=== PATIENT | male | born 1990 | race Caucasian/White ===

== ENCOUNTER → 2017-08-06 | Day surgery (SDC) | payer BC ==
[~2017-08-06] MED LIST: Dexamethasone 4 MG/ML 5 ML MDV ONE; EPINEPHrine 1 MG/ML 30 ML MDV ONE; Lactated Ringers 0 ML ONE; Lactated Ringers 1,000 ML IV SCH; Lidocaine 1% 0 ML ONE; Lidocaine 1%/Sod Bicarbonate in NS 8.4% 1 ML Syringe IDERM PRN; Midazolam 1 MG/ML 2 ML SDV ONE; Ondansetron 4 MG/2 ML SDV ONE; Pregabalin 25 MG Cap PO ONE; Propofol 200 MG/20 ML SDV ONE; Rocuronium 50 MG/5 ML Vial ONE; Sodium Chloride 0.9% 10 ML Syringe FLUSH PRN; ceFAZolin 1 GM Vial ONE; fentaNYL 250 MCG/5 ML SDV ONE; oxyCODONE ER 10 MG TAB.ER PO SCH
== END | disposition home or self-care (01) ==
LOC: JD.SDS 06:34
PROVIDERS: ATTEND Orthopaedic Surgery
DX: M25.851 Other specified joint disorders, right hip (principal); Z53.8 Procedure and treatment not carried out for other reasons
CPT/HCPCS: 87641; A9270-GY; J0690; J1100; J2250; J2405; J2704; J3010; J7120

== ENCOUNTER 2017-08-09 06:37 | Day surgery (SDC) | payer BC ==
[~2017-08-09 06:37] MED LIST changes: +Acetaminophen 1,000 MG/100 ML Infusion Bottle IV ONE; -Dexamethasone 4 MG/ML 5 ML MDV ONE; -EPINEPHrine 1 MG/ML 30 ML MDV ONE; -Lactated Ringers 0 ML ONE; -Lidocaine 1% 0 ML ONE; -Midazolam 1 MG/ML 2 ML SDV ONE; -Ondansetron 4 MG/2 ML SDV ONE; -Pregabalin 25 MG Cap PO ONE; +Pregabalin 25 MG Cap PO SCH; -Propofol 200 MG/20 ML SDV ONE; -Rocuronium 50 MG/5 ML Vial ONE; -ceFAZolin 1 GM Vial ONE; -fentaNYL 250 MCG/5 ML SDV ONE
[2017-08-09] MEDS ORDERED: Bupivacaine 0.25% 30 ML SDV ONE (07:13)
[2017-08-09] MEDS ORDERED: EPINEPHrine 1 MG/ML 30 ML MDV ONE (07:26)
[2017-08-09] MEDS ORDERED: Midazolam 1 MG/ML 2 ML SDV ONE (07:46)
[2017-08-09] MEDS ORDERED: fentaNYL 250 MCG/5 ML SDV ONE (07:46)
[2017-08-09] MEDS ORDERED: Propofol 200 MG/20 ML SDV ONE (07:46)
[2017-08-09] MEDS ORDERED: Rocuronium 50 MG/5 ML Vial ONE ×2 (07:48→09:00)
[2017-08-09] MEDS ORDERED: Dexamethasone 4 MG/ML 5 ML MDV ONE (07:48)
[2017-08-09] MEDS ORDERED: Lidocaine 1% 4 ML ONE (07:48)
[2017-08-09] MEDS ORDERED: Ondansetron 4 MG/2 ML SDV ONE (07:48)
[2017-08-09] MEDS ORDERED: ceFAZolin 1 GM Vial ONE (07:49)
[2017-08-09] MEDS ORDERED: Lactated Ringers 1,000 ML ONE (10:38)
[2017-08-09] MEDS ORDERED: Bupivacaine 0.25% 10 ML SDV ONE (11:25)
[2017-08-09] MEDS ORDERED: Ketorolac 30 MG/ML SDV ONE (11:30)
--- NOTE | 2017-08-09 11:36 | CR ---
Right hip: Multiple fluoroscopic spot views were obtained of the right hip. Study obtained utilizing C-arm device. Study shows probe and arthroscope present for right hip arthroscopy. Fluoroscopy time is given as 140.4 seconds. Impression: 1. Operative study as noted above. Diagnostic code #2
[2017-08-09] MEDS ORDERED: Glycopyrrolate 0.2 MG/ML SDV ONE (11:39)
[2017-08-09] MEDS ORDERED: Neostigmine Methylsulfate 10 MG/10 ML MDV ONE (11:39)
[2017-08-09] MEDS ORDERED: fentaNYL 100 MCG/2 ML SDV IVPUSH PRN (11:50)
[2017-08-09] MEDS ORDERED: HYDROmorphone 0.5 MG/0.5 ML Syringe IVPUSH ONE (11:50)
[2017-08-09] MEDS ORDERED: Ondansetron 4 MG/2 ML SDV IVPUSH PRN (11:50)
[2017-08-09] MEDS ORDERED: diphenhydrAMINE 50 MG/ML SDV IVPUSH PRN (11:50)
[2017-08-09] MEDS ORDERED: Meperidine PF 50 MG/ML Syringe IVPUSH PRN (11:50)
--- NOTE | 2017-08-09 11:52 | PCM.POSTAN ---
POST ANESTHESIA ASSESSMENT - MENTAL STATUS Mental Status: Alert, Oriented - VITAL SIGNS Pulse Rate: 75 SaO2: 99 Resp Rate: 12 Blood Pressure: 121/60 Temperature: 36.9 C - RESPIRATORY Respiratory Status: Respiratory Rate WNL, Airway Patent, O2 Saturation Stable, Supplemental Oxygen - CARDIOVASCULAR CV Status: Pulse Rate WNL, Blood Pressure Stable - GASTROINTESTINAL GI Status: No Symptoms - PAIN Pain Score: 0 - POST OP HYDRATION Hydration Status: Adequate & Stable
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
[2017-08-09] MEDS ORDERED: Acetaminophen/HYDROcodone 325-5 MG Tab PO SCH (13:07)
--- NOTE | 2017-08-09 15:04 | PCM48HPAN ---
Post Anesthesia Note - EVALUATION WITHIN 48HRS OF ANESTHETIC Vital Signs in Normal Range: Yes Patient Participated in Evaluation: Yes Respiratory Function Stable: Yes Airway Patent: Yes Cardiovascular Function Stable: Yes Hydration Status Stable: Yes Pain Control Satisfactory: Yes Nausea and Vomiting Control Satisfactory: Yes Mental Status Recovered: Yes
--- NOTE | 2017-08-13 17:35 | PCM.OPNOTE ---
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
--- NOTE | 2017-08-16 09:23 | OR ---
DATE OF OPERATION: 08/06/2017 SURGEON: Denzel Estrada MD OPERATION PERFORMED: Right hip video arthroscopy with acetabular labral repair and femoroplasty. PREOPERATIVE DIAGNOSIS: Right hip femoral acetabular impingement with labral tear. POSTOPERATIVE DIAGNOSIS: Right hip femoral acetabular impingement with labral tear. ANESTHESIA: General endotracheal intubation with local. ANESTHESIA PROVIDER: Luciano Hernadez. RN TRAUMA: Saumya Rodriguez LPN ESTIMATED BLOOD LOSS: 10 mL. COMPLICATIONS: None. CONDITION: Stable DESCRIPTION OF PROCEDURE: The patient was identified in the preop holding area. Proper site was marked and identified by the surgeon. The patient was taken back to the operative theater where, after adequate anesthesia, the patient's left lower extremity was placed in a traction boot, and minimal gross traction was applied. Right lower extremity was then placed in a traction boot, and gross traction was then applied. At this time, the right hip was then sterilely prepped and draped in the usual sterile fashion. OR time-out was performed. The patient received 2 g of IV Ancef. The patient's patella was straight up toward the ceiling. At this time, under direct C-arm fluoroscopy, 4 turns of traction were applied. The patient's hip was not distracting. So, at this time, a spinal needle was used for placement of a lateral portal, and once it was intra-articular, the joint decompressed, and there was noted to be enough traction at that time. One turn of traction was then released. At this time, an incision was made, and a lateral portal was created under direct visualization. Anterolateral portal was then created with the use of a spinal needle. Scope trocar was then inserted, and a working portal was then placed. At this time, the patient was noted to have significant fraying of his anterior, all the way to the anterolateral labrum. A traction stitch was then applied to the superior labral region, and a T capsulotomy was then performed from medial to lateral to connect the 2 portals by doing a capsulotomy. Once this was completed, debridement was done above the acetabular rim, and cautery was then used to bring the labrum back until the rim of the acetabulum was visualized all the way from anterior, all the way to the anterolateral portion under direct C-arm fluoroscopy. With the use of a 5.5 full-radius razia rubi, I was able to perform an acetabuloplasty all the way from the anterior lip all the way to the anterolateral lip under direct C-arm fluoroscopy showing good resection. There was noted to be a minor amount of bone spurring noted, especially on the very far anterior labrum, with loose pieces of bone noted that were resected out. Once there was found to have good contour of the anterior labrum with resection of the anterior and anterolateral rims, it was decided at this time we would start with the curved knotless labral anchor. At this time, starting most anterior and medial, a curved knotless Ben labral anchor was then drilled for. A suture was then passed, and then the anchor was placed in the anterior rim of the acetabulum under direct visualization into the joint, making sure there was no penetration of the joint. The suture limbs were then tightened to make sure there was good tension and roll back in the labrum. There was found to have adequate repair of the labrum at this time. In a similar fashion, 3 more anchors were then done. Again, we started most anteromedial and then worked all the way to the anterolateral portion. There was noted to be good gnosticism of the bumper effect all the way around. There was not fraying of the labrum noted, which was then resected and cleaned up throughout to have a good nice brim noted throughout with a good watertight labral repair. The patient did have some bubbling of the chondral surface, but no full-thickness defects were noted of the femoral head or the acetabulum at this time. At this time, once this was completed, traction was then taken off, and a Dahla portal was created. The traction stitches were then applied on either the medial and lateral side of the femoral neck and samurai blade as well as cautery was used to complete the T capsulotomy. Under direct visualization and C-arm fluoroscopy, the significant CAM lesion both of the anterior and anterolateral femoral neck and femoral head was identified. Using the razia rubi, we again performed a large femoroplasty, resecting roughly 8 mm of bone both from the head and neck junction and in the anterolateral and lateral femoral necks. At this time, it was noted under direct visualization and C-arm fluoroscopy to have complete resection of the CAM lesion with good contour of the femoral head and neck. At this time, a stitch was then placed in the T capsulotomy portion down the neck. Two stitches were then placed and then tied for repair of that portion of the capsulotomy. The other portion was noted to have bigger spacing, and no repair could be done for that, but the patient did have a deep, well-seated socket. So, the risk of dislocation is minimal. At this time, excess saline was drained from the hip joint. A 3-0 nylon simple suture was used for closure of the skin. Marcaine was then injected around the ASIS as well as the portal incisions, and the patient had a sterile soft dressing applied. TRISH /[id number] EMA
== END 2017-08-09 14:25 | disposition home or self-care (01) ==
LOC: JD.SDS 06:37
PROVIDERS: ATTEND Orthopaedic Surgery
DX: M25.851 Other specified joint disorders, right hip (principal); S73.191A Other sprain of right hip, initial encounter; J45.20 Mild intermittent asthma, uncomplicated; Z87.891 Personal history of nicotine dependence; Z79.899 Other long term (current) drug therapy; X58.XXXA Exposure to other specified factors, initial encounter
CPT/HCPCS: 29914; 29916; 76000; A9270; C1776; J0171; J0690; J1100; J1170; J1885; J2250; J2405; J2710; J3010; J3490; J7120; 01202; J2704

== ENCOUNTER 2021-07-24 15:36 | Emergency (ER) | payer OTHER | END 2021-07-24 16:35 | disposition home or self-care (01) | LOC: JD.ED 15:36 | DX: S63.104A Unspecified dislocation of right thumb, initial encounter (principal); K21.9 Gastro-esophageal reflux disease without esophagitis; Z79.82 Long term (current) use of aspirin; W18.39XA Other fall on same level, initial encounter | CPT/HCPCS: 26725; 26770; 73140-26-F5; 73140-F5; 99283 ==

== ENCOUNTER 2021-11-30 23:03 | Emergency (ER) | payer OTHER, MEDICAID | END 2021-12-01 00:27 | disposition home or self-care (01) | LOC: JD.ED 23:03 | DX: S63.501A Unspecified sprain of right wrist, initial encounter (principal); F17.210 Nicotine dependence, cigarettes, uncomplicated; Z79.899 Other long term (current) drug therapy; Z79.82 Long term (current) use of aspirin; X50.0XXA Overexertion from strenuous movement or load, initial encounter | CPT/HCPCS: 73110-26-RT; 73110-RT; 99283 ==

== ENCOUNTER 2023-01-29 12:20 | Emergency (ER) | payer MEDICAID, OTHER ==
[2023-01-29] MEDS ORDERED: Sodium Chloride 0.9% 10 ML Syringe FLUSH PRN (12:40)
[2023-01-29 13:06] LABS: BASOPHILS PERCENT AUTO 0.7 % (0.0-1.0); EOSINOPHILS ABSOLUTE AUTO 0.3 K/mm3 (0.0-0.4); EOSINOPHILS PERCENT AUTO 4.3 % (0.0-6.0); HEMATOCRIT 46.1 % (42.0-52.0); HEMOGLOBIN 16.2 gm/dl (14.0-18.0); LYMPHOCYTES ABSOLUTE AUTO 2.3 K/mm3 (1.0-4.8); LYMPHOCYTES PERCENT AUTO 37.8 % (24.0-44.0); MEAN CORPUSCULAR HEMOGLOBIN 29.5 pg (28.0-32.0); MEAN CORPUSCULAR HGB CONC 35.1 g/dl (32.0-36.0); MEAN PLATELET VOLUME 9.4 fl (9.4-12.4); MONOCYTES ABSOLUTE AUTO 0.4 K/mm3 (0.0-0.8); MONOCYTES PERCENT AUTO 7.1 % (0.0-8.0); NEUTROPHILS PERCENT AUTO 50.1 % (41.0-71.0); PLATELET COUNT,PLT 229 K/mm3 (150-400); RED BLOOD CELL COUNT 5.49 M/mm3 (4.52-5.90); WHITE BLOOD CELL COUNT,WBC 6.06 K/mm3 (3.9-11.3)
[2023-01-29 13:48] LABS: INR 1.09; PROTHROMBIN TIME 11.6 SECONDS (9.7-12.0)
[2023-01-29 13:49] LABS: A/G RATIO 1.5 (1-2); ALANINE AMINOTRANSFERASE,ALT 38 U/L (16-63); ALBUMIN 4.5 g/dl (3.4-5.0); ALKALINE PHOSPHATASE 52 U/L (46-116); ANION GAP 12.6 (5-15); ASPARTATE AMNIOTRANSFERASE,AST 25 U/L (15-37); BILIRUBIN TOTAL 1.6 mg/dL (0.2-1.0); BLOOD UREA NITROGEN,BUN 14 mg/dL (7-18); BUN/CREATININE RATIO 12.7 (14-18); CALCIUM 8.9 mg/dL (8.5-10.1); CARBON DIOXIDE,CO2 28 mEq/L (21-32); CHLORIDE,CL 101 mEq/L (98-107); CREATININE 1.1 mg/dL (0.7-1.3); EST CRCL DRUG DOSING (CG) 100.47 mL/min; ESTIMATED GFR 92 mL/min (>60); GLUCOSE RANDOM 90 mg/dL (70-99); MAGNESIUM 2.1 mg/dL (1.8-2.4); POTASSIUM,K 3.6 mEq/L (3.5-5.1); PROTEIN TOTAL,TP 7.5 g/dl (6.4-8.2); SODIUM,NA 138 mEq/L (136-145)
[2023-01-29 13:57] LABS: TROPONIN I HIGH SENSITIVITY < 4 pg/mL (<=76)
[2023-01-29 13:59] LABS: D-DIMER QUANTITATIVE < 0.19 mg/L (0.19-0.50)
== END 2023-01-29 15:15 | disposition home or self-care (01) ==
LOC: JD.ED 12:20
DX: R07.9 Chest pain, unspecified (principal); J45.909 Unspecified asthma, uncomplicated
CPT/HCPCS: 36415; 80053; 83735; 84484; 85025; 85379; 85610; 93005; 93010; 99284; 99285

== ENCOUNTER 2024-06-10 21:10 | Emergency (ER) | payer OTHER ==
[2024-06-10] MEDS: Sodium Chloride 0.9% 1,000 ML IV ONE (21:44)
[2024-06-10] MEDS: Metoclopramide 10 MG/2 ML SDV IVPUSH ONE (21:46)
[2024-06-10] MEDS: diphenhydrAMINE 50 MG/ML SDV IVPUSH ONE (21:50)
[2024-06-10] MEDS: Ketorolac 30 MG/ML SDV IVPUSH ONE (21:50)
== END 2024-06-10 22:51 | disposition home or self-care (01) ==
LOC: JD.ED 21:10
DX: G43.909 Migraine, unspecified, not intractable, without status migrainosus (principal); J45.909 Unspecified asthma, uncomplicated; Z90.89 Acquired absence of other organs
CPT/HCPCS: 96361; 96374; 96375; 99283; J1200; J1885; J2765; J7030

== ENCOUNTER 2024-11-12 20:04 | Emergency (ER) | payer OTHER ==
[2024-11-12] MEDS ORDERED: Sodium Chloride 0.9% 10 ML Syringe FLUSH PRN (20:33)
[2024-11-12 20:41] LABS: BASOPHILS ABSOLUTE AUTO 0.1 K/mm3 (0.0-0.2); BASOPHILS PERCENT AUTO 0.8 % (0.0-1.0); EOSINOPHILS ABSOLUTE AUTO 0.2 K/mm3 (0.0-0.4); EOSINOPHILS PERCENT AUTO 3.6 % (0.0-6.0); IMMATURE GRAN ABSOLUTE AUTO 0.01 K/mm3 (0.00-0.05); IMMATURE GRAN PERCENT AUTO 0.2 % (0.0-0.4); LYMPHOCYTES ABSOLUTE AUTO 2.6 K/mm3 (1.0-4.8); LYMPHOCYTES PERCENT AUTO 39.8 % (24.0-44.0); MEAN PLATELET VOLUME 10.3 fl (9.4-12.4); MONOCYTES ABSOLUTE AUTO 0.6 K/mm3 (0.0-0.8); MONOCYTES PERCENT AUTO 8.7 % (0.0-8.0); NEUTROPHILS ABSOLUTE AUTO 3.1 K/mm3 (1.8-7.7); NEUTROPHILS PERCENT AUTO 46.9 % (41.0-71.0); NRBC ABSOLUTE 0.00 (0.00-0.02); NRBC PERCENT 0.0 % (0.0-0.2); PLATELET COUNT,PLT 221 K/mm3 (150-400); RED BLOOD CELL COUNT 4.71 M/mm3 (4.52-5.90); WHITE BLOOD CELL COUNT,WBC 6.63 K/mm3 (3.9-11.3)
[2024-11-12] MEDS: Ketorolac 30 MG/ML SDV IVPUSH ONE (20:57)
[2024-11-12 21:13] LABS: A/G RATIO 1.5 (1-2); ALANINE AMINOTRANSFERASE,ALT 33.0 U/L (16-63); ASPARTATE AMNIOTRANSFERASE,AST 21.0 U/L (15-37); BILIRUBIN TOTAL 1.1 mg/dL (0.2-1.0); BLOOD UREA NITROGEN,BUN 27.0 mg/dL (7-18); CARBON DIOXIDE,CO2 29.0 mEq/L (21-32); CHLORIDE,CL 101.0 mEq/L (98-107); CREATININE 1.4 mg/dL (0.7-1.3); EST CRCL DRUG DOSING (CG) 77.49 mL/min; ESTIMATED GFR 68.0 mL/min (>60); GLUCOSE RANDOM 125.0 mg/dL (70-99); POTASSIUM,K 3.7 mEq/L (3.5-5.1); PROTEIN TOTAL,TP 6.5 g/dl (6.4-8.2); SODIUM,NA 138.0 mEq/L (136-145); TROPONIN I HIGH SENSITIVITY 5.0 pg/mL (<=76)
[2024-11-12] MEDS: Lactated Ringers 1,000 ML IV ONE (22:02)
== END 2024-11-12 22:54 | disposition home or self-care (01) ==
LOC: JD.ED 20:04
DX: R55 Syncope and collapse (principal); E86.0 Dehydration; M25.512 Pain in left shoulder; F17.200 Nicotine dependence, unspecified, uncomplicated
CPT/HCPCS: 36415; 80053; 83735; 84484; 85025; 93005; 96361; 96374; 99284; A9270; J1885; J7030; J7120; 93010